=== PATIENT | male | born 1990 | race Caucasian/White ===

== ENCOUNTER 2022-06-30 18:59 | Emergency (ER) | payer BC ==
[2022-06-30] MEDS ORDERED: Famotidine/PF 20 mg/2ml Vial ONE (20:11)
== END 2022-06-30 22:32 | disposition home or self-care (01) ==
LOC: ERS 18:59
DX: T78.2XXA Anaphylactic shock, unspecified, initial encounter (principal)
CPT/HCPCS: 99283; S0028